=== PATIENT | female | born 1985 ===

== ENCOUNTER → 2024-05-23 06:19 | Day surgery (SDC) | payer BC, SELFPAY | LOC: GI 06:19 | PROVIDERS: ATTENDING PHYSICIAN Internal Medicine | DX: R13.10 Dysphagia, unspecified (principal); R93.3 Abnormal findings on diagnostic imaging of other parts of digestive tract; D17.5 Benign lipomatous neoplasm of intra-abdominal organs; K29.50 Unspecified chronic gastritis without bleeding | CPT/HCPCS: 43239; 88305; 88342 ==